=== PATIENT | male | born 1995 ===

== ENCOUNTER 2020-06-11 12:12 | Outpatient (CLI) | payer MEDICAID ==
[~2020-06-11] VITALS: Ht 170.2 cm; Wt 77.6 kg
--- NOTE | 2020-06-11 19:07 | Consultation ---
DATE OF CONSULTATION: 06/11/2020 GASTROENTEROLOGY CONSULTATION CONSULTING PHYSICIAN: Lazaro Roca MD CHIEF COMPLAINT: Chronic GERD. PAST MEDICAL HISTORY: None. PAST SURGICAL HISTORY: None. MEDICATIONS: Omeprazole 40 mg daily. ALLERGIES: No known drug allergies. FAMILY HISTORY: No family history of GI malignancies. SOCIAL HISTORY: The patient drinks alcohol occasionally. Denies any tobacco or IV drug abuse, but the patient has prior history of cocaine abuse. REVIEW OF SYSTEMS: A 10-point review of systems was performed and pertinent positives significant for GERD. PHYSICAL EXAMINATION: VITAL SIGNS: Temperature 97.2, blood pressure 150/80, pulse 91, respirations 20. Height is 5 feet and 7 inches. Weight is 171. HEENT: Normocephalic and atraumatic. Sclerae anicteric. NECK: Supple. No evidence of obvious lymphadenopathy. CARDIOVASCULAR: Regular rate and rhythm. Plus S1, S2. LUNGS: Clear to auscultation bilaterally. ABDOMEN: Positive bowel sounds. Soft, nontender. No rebound. No guarding. No peritoneal sign. EXTREMITIES: No cyanosis. No clubbing. No edema. ASSESSMENT AND PLAN: This is a 24-year-old male with significant GERD, not responding to PPI. The patient will need an endoscopy. The patient was educated about GERD risks and the diet, and we will schedule him for endoscopy when authorization is obtained. Lazaro Roca M.D. DR: Anupama JOB#: [id number] CC:
[2020-06-13] MEDS ORDERED: OMEPRAZOLE40 M1 ORAL (15:01)
[2020-06-13 15:02] VITALS: BP 150/100
== END 2020-06-11 14:12 | disposition home or self-care (01) ==
LOC: PAN 12:12
DX: K21.9 Gastro-esophageal reflux disease without esophagitis (principal); Z79.899 Other long term (current) drug therapy
CPT/HCPCS: G0463